=== PATIENT | male | born 1985 | race African-American/Black ===

== ENCOUNTER 2021-03-02 09:12 | Emergency (ER) | payer OTHER ==
[~2021-03-02] VITALS: Ht 188 cm; Wt 77.1 kg
[2021-03-02 09:52] LABS: BASOPHILS 0.7 % (0.0-2.0); HEMATOCRIT 50.6 % (42.0-52.0); LYMPHOCYTES 3.3 % (24.0-44.0); MCH 32.4 pg (26.0-34.0); MCHC 33.7 g/dL (28.0-37.0); MCV 96.3 fL (80.0-100.0); MONOCYTES 3.1 % (1.0-8.0); POLYS 92.9 % (36.0-66.0); RBC 5.25 mil/uL (4.50-6.00); RDW 16.4 % (10.5-14.5); WBC 10.7 thou/uL (4.0-11.0)
[2021-03-02 09:58] LABS: CALCIUM 8.8 mg/dL (8.5-10.1); CREATININE 1.4 mg/dL (0.7-1.3); POTASSIUM 3.5 mmol/L (3.5-5.1)
[2021-03-02 10:32] VITALS: BP 136/70
[2021-03-02 11:37] LABS: LARGE PLATELETS OCCASIONAL; PLATELET COUNT 80 thou/uL (150-400)
== END 2021-03-02 10:53 | disposition home or self-care (01) ==
LOC: ER 09:12
PROVIDERS: Emergency Medicine
DX: J40 Bronchitis, not specified as acute or chronic (principal); Z88.0 Allergy status to penicillin

== ENCOUNTER 2021-03-20 20:35 | Emergency (ER) | payer OTHER ==
[~2021-03-20] VITALS: Ht 188 cm; Wt 79.4 kg
[2021-03-20 20:44] VITALS: BP 107/66
[2021-03-20] MEDS ORDERED: IBUPROFEN 800800 MG PO (21:47)
[2021-03-20] MEDS ORDERED: FLEXERIL PO (21:47)
== END 2021-03-20 21:55 | disposition home or self-care (01) ==
LOC: ER 20:35
DX: S06.0X9A Concussion with loss of consciousness of unspecified duration, initial encounter (principal); S16.1XXA Strain of muscle, fascia and tendon at neck level, initial encounter; S39.012A Strain of muscle, fascia and tendon of lower back, initial encounter; Z88.0 Allergy status to penicillin; V89.2XXA Person injured in unspecified motor-vehicle accident, traffic, initial encounter; Y93.I9 Activity, other involving external motion; Y92.89 Other specified places as the place of occurrence of the external cause; Y99.8 Other external cause status